=== PATIENT | male | born 1955 | race Caucasian/White ===

== ENCOUNTER 2019-11-16 19:59 | Emergency (ER) | payer OTHER ==
[2019-11-16] MEDS ORDERED: SODIUM CHLORIDE IRRI 500 ML 500 ML IR ONE (20:13)
[2019-11-16] MEDS ORDERED: MORPHINE 4 MG/1 ML INJ IV ONE (21:07)
[2019-11-16] MEDS ORDERED: ONDANSETRON 4 MG/2 ML INJ IV ONE (21:07)
[2019-11-16] MEDS ORDERED: HYDROGEN PEROXIDE 118 ML SOLUTION ONE ×2 (21:11→21:17)
[2019-11-16] MEDS ORDERED: HYDROGEN PEROXIDE 118 ML SOLUTION TP ONE (21:23)
--- NOTE | 2019-11-16 21:28 | Emergency Department Report ---
ED Male HPI - General Chief complaint: Abdominal Pain Stated complaint: BLOOD IN URINARY CATHETER BAG Time Seen by Provider: 11/16/19 20:52 Source: patient, EMS Mode of arrival: Stretcher Limitations: No Limitations - History of Present Illness Initial comments: Mr. Dill is a 64 yo male with hx of BPH, urinary retention, TIA, atrial fibrillation, hypertension, hypercholesterolemia who presents with urinary retention. Patient has franklin placed at OSH ER on Saturday for urinary retention. Today at urologist's office, voiding trial produced 95 ml of urine. One hour after voiding trial, he developed severe discomfort with strong urge to urinate. He immediately went to [facility]. Placement of Franklin catheter attempted at [facility]. Patient was in severe pain without urine output. Patient arrived with Franklin catheter inserted and only scant blood in collection bag. Patient is extremely uncomfortable. 10 out of 10 severity of pain with strong urgency to urinate MD Complaint: other (Urinary retention) -: Sudden, This afternoon Severity: severe Severity scale (0 -10): 10 Consistency: constant Improves with: none Worsens with: none indwelling catheter (Attempted insertion at [facility]) - Related Data Allergies Allergy/AdvReac Type Severity Reaction Status Date / Time Penicillins Allergy Hives Verified 11/16/19 20:05 shellfish derived Allergy Hives Verified 11/16/19 20:05 ED Review of Systems ROS: Stated complaint: BLOOD IN URINARY CATHETER BAG Other details as noted in HPI Comment: All other systems reviewed and negative Constitutional: denies: fever, malaise Respiratory: denies: cough Cardiovascular: denies: chest pain Gastrointestinal: abdominal pain Genitourinary: urgency, hematuria ED Past Medical Hx - Past Medical History Previous Medical History?: Yes Hx Hypertension: Yes Hx CVA: Yes (TIA) Additional medical history: Enlarged Prostate, atrial fibrillation - Surgical History Past Surgical History?: Yes Additional Surgical History: Right achiles, 2 hernia repairs - Social History Smoking Status: Never Smoker Substance Use Type: None ED Physical Exam - General Limitations: No Limitations General appearance: alert, in distress (In severe discomfort unable to get comfortable.) - Head Head exam: Present: atraumatic, normocephalic - Eye Eye exam: Present: normal appearance - ENT ENT exam: Present: mucous membranes moist - Neck Neck exam: Present: normal inspection - Respiratory Respiratory exam: Present: normal lung sounds bilaterally. Absent: respiratory distress - Cardiovascular Cardiovascular Exam: Present: regular rate, normal rhythm. Absent: systolic murmur, diastolic murmur, rubs, gallop - GI/Abdominal GI/Abdominal exam: Present: soft, normal bowel sounds. Absent: distended, tenderness, guarding, rebound - Rectal Rectal exam: Present: deferred - exam: Present: other (franklin catheter in urethra, blood at urethral meatus) - Extremities Exam Extremities exam: Present: normal inspection - Back Exam Back exam: Present: normal inspection - Neurological Exam Neurological exam: Present: alert, oriented X3 - Psychiatric Psychiatric exam: Present: normal affect, anxious - Skin Skin exam: Present: warm, dry, intact, normal color. Absent: rash ED Course Vital Signs 11/16/19 11/16/19 21:15 21:20 Temperature 98.7 F Pulse Rate 116 H Respiratory 18 20 Rate Blood Pressure 143/86 [Left] O2 Sat by Pulse 96 Oximetry - Reevaluation(s) Reevaluation #1: 11/16/19 22:04 Dr. Canas, [place] physician consulted. She agreed to assist with transfer to facility with urology coverage. Reevaluation #2: 11/16/19 23:[address] Canas. She contacted emergency departments of [facility], [place], and [facility] departments at full saturation. She requested that I arrange transfer for emergent urological consultation. Reevaluation #3: 11/16/19 23:21 I spoke with urologist Dr. Lucio the [place] transfer center. He accepted the patient to the seventh floor. Patient will be emergently transferred to [facility] for acute emergent urological care. - Catheter Insertion (Urinary) Indications: to alleviate urinary retention Prophylactic Antibiotics Given: No Bladder Scan/US before Catherization: Yes (large distended bladder on ultrasound) Preparation: Providone-Iodine Type of Catheter Inserted: coude tip Results: ultrasound used for placement verification, unable to pass, retried with smaller/different catheter, consulted Patient Tolerated Procedure: other ED Medical Decision Making - Medical Decision Making Acute urinary retention: I removed 20 cc of fluid through port from the balloon of the catheter inserted. I immediately removed franklin catheter present. Patient had mild relief with copious amount of blood expressed from urethral meatus. I attempted to insert multiple sizes of franklin catheter including 18 Fr and 24 Fr coude catheter. Both catheters would not pass. Upon removal, each catheter was folded, doubled over. I did not inflate balloon on either attempt. I am concerned for false passage. The initial franklin catheter balloon was inflated without expression of urine in collection bag. Patient will be transferred emergently to [facility] seventh floor accepted by Dr. Lucio. Critical Care Time: Yes Critical care time in (mins) excluding proc time.: 40 Critical care attestation.: If time is entered above; I have spent that time in minutes in the direct care of this critically ill patient, excluding procedure time. 40 minutes of critical care time excluding procedures were used in the care of the patient. I reviewed electronic record. I discussed treatment plan with the nursing team members at the bedside. I came immediately to the bedside upon patient's arrival via EMS. Patient required multiple interventions and reassessments. Patient required multiple consultations with physicians. ED Disposition Clinical Impression: Acute urinary retention, BPH (benign prostatic hyperplasia) Disposition: [id number]/TX-[id number] ANOTHER TYPE HLTHCARE Is pt being admited?: No Does the pt Need Aspirin: No Condition: Fair
[2019-11-17 00:34] VITALS: BP 122/87
== END 2019-11-17 00:30 | disposition other institution (70) ==
LOC: ED 19:59
DX: R33.9 Retention of urine, unspecified (principal); N40.0 Benign prostatic hyperplasia without lower urinary tract symptoms; I10 Essential (primary) hypertension; Z98.890 Other specified postprocedural states; Z86.73 Personal history of transient ischemic attack (TIA), and cerebral infarction without residual deficits; Z88.0 Allergy status to penicillin; Z91.013 Allergy to seafood
CPT/HCPCS: 51702; 96374; 96375; 99285; J2270; J2405